=== PATIENT | female | born 1960 ===

== ENCOUNTER → 2023-09-06 11:10 | Outpatient (REF) | payer BC, SELFPAY | LOC: RAD 11:10 | PROVIDERS: ATTENDING PHYSICIAN Internal Medicine | DX: R60.0 Localized edema (principal) | CPT/HCPCS: 93971 ==

== ENCOUNTER → 2023-09-21 10:09 | Outpatient (REF) | payer BC, SELFPAY | LOC: DHVS 10:09 | PROVIDERS: ATTENDING PHYSICIAN Registered Nurse; FAMILY PHYSICIAN Internal Medicine | DX: I87.2 Venous insufficiency (chronic) (peripheral) (principal) | CPT/HCPCS: 93970 ==

== ENCOUNTER → 2023-11-01 09:19 | Outpatient (REF) | payer BC, SELFPAY | LOC: HWEVLT 09:19 | PROVIDERS: ATTENDING PHYSICIAN Radiology Vascular & Interventional Radiology | DX: I83.892 Varicose veins of left lower extremity with other complications (principal) | CPT/HCPCS: 36478; C1769 ==

== ENCOUNTER → 2023-11-21 11:01 | Outpatient (REF) | payer BC, SELFPAY | LOC: HWEVLT 11:01 | PROVIDERS: ATTENDING PHYSICIAN Radiology Diagnostic Radiology | DX: I83.892 Varicose veins of left lower extremity with other complications (principal) | CPT/HCPCS: 93971 ==

== ENCOUNTER → 2024-01-11 15:06 | Outpatient (REF) | payer BC, SELFPAY | LOC: HWEVLT 15:06 | PROVIDERS: ATTENDING PHYSICIAN Radiology Vascular & Interventional Radiology | DX: I83.892 Varicose veins of left lower extremity with other complications (principal) | CPT/HCPCS: 93971 ==

== ENCOUNTER → 2024-04-16 08:46 | Outpatient (REF) | payer BC, SELFPAY ==
--- NOTE | 2024-04-16 10:10 | W.PN.UPDATE ---
Update Note
Progress Note Update
Ruchi is a 64 yo female who came in today for follow up. She had left greater saphenous vein ablation on November 01, 2023. Her two-week follow-up showed no evidence of DVT. She was seen on 01/11/24 for similar symptoms. She called the office
yesterday stating that she still has swelling and the wounds are still draining clear fluid and occasional blood. She has been wearing her stocking daily. She has tneder superficial varicosities a well. She denies any chest pain, palpitations or
shortness of breath. She comes here now for evaluation
PMHx/PSxHx: Venous insufficiency, hemachromatosis, hypertension, hypothyroidism.
Social Hx: Patient is and lives with her . She denies tobacco use.
Family Hx: Patient has a family history of venous insufficiency
The patient's medications were reconciled with the medical records.
Current Medications: Nebivolov, losartan, levothyroxine, atorvastatin, pantoprazole, lorazepam, vitamin D3
Allergies: NKDA
Physical examination: There is left leg swelling and tenderness along the mid left calf. There are palpable tender superficial varicosities. +2 pitting edema. Palpable dorsalis pedis and posterior tibial pedal pulses. There is chronic
circumferential cellulitis around the distal third of the lower leg. There is lipodermatosclerosis and chronic venous stasis skin changes.
Ultrasound examination from 01/11/2024 demonstrates there is superficial thrombophlebitis in the superficial varicosities in the lower calf branching off of the greater saphenous vein which is occluded consistent with successful closure. There is no
evidence of deep venous thrombosis. I personally reviewed and interpreted these images
Assessment/Plan:
This is a 64-year-old female with history of venous insufficiency. She had a left greater saphenous vein ablation on November 01, 2023. She had a follow-up ultrasound on November 20 which was consistent with successful endovenous laser ablation of
the left greater saphenous vein. She still has palpable swollen tender varicosities in the left medial calf and some lower extremity swelling. Ultrasound is consistent with superficial thrombophlebitis. Since the procedure was in October and she
still has some nonhealing wounds we referred her to the wound care center. She was able to obtain an appointment this coming at the wound center
I spent over 15 minute in counseling and coordination of care with the patient, reviewing the history and physical examination, ultrasound exam as well as discussing our findings and treatment plan.
== END ==
LOC: RADI 08:46
PROVIDERS: ATTENDING PHYSICIAN Radiology Vascular & Interventional Radiology; FAMILY PHYSICIAN Internal Medicine
DX: I87.2 Venous insufficiency (chronic) (peripheral) (principal); R22.42 Localized swelling, mass and lump, left lower limb; I80.02 Phlebitis and thrombophlebitis of superficial vessels of left lower extremity

== ENCOUNTER → 2024-04-18 07:59 | Outpatient (REF) | payer BC, SELFPAY | LOC: WOUND 07:59 | PROVIDERS: ATTENDING PHYSICIAN Surgery; FAMILY PHYSICIAN Internal Medicine | DX: I87.312 Chronic venous hypertension (idiopathic) with ulcer of left lower extremity (principal); L97.221 Non-pressure chronic ulcer of left calf limited to breakdown of skin; I87.2 Venous insufficiency (chronic) (peripheral) | CPT/HCPCS: 99203 ==

== ENCOUNTER → 2024-04-23 10:24 | Outpatient (REF) | payer BC, SELFPAY | LOC: WOUND 10:24 | PROVIDERS: ATTENDING PHYSICIAN Surgery; FAMILY PHYSICIAN Internal Medicine | DX: I87.312 Chronic venous hypertension (idiopathic) with ulcer of left lower extremity (principal); L97.221 Non-pressure chronic ulcer of left calf limited to breakdown of skin; I87.2 Venous insufficiency (chronic) (peripheral) | CPT/HCPCS: 99212 ==

== ENCOUNTER → 2024-04-24 14:43 | Outpatient (REF) | payer BC, SELFPAY | LOC: HWEVLT 14:43 | PROVIDERS: ATTENDING PHYSICIAN Radiology Diagnostic Radiology | DX: I83.892 Varicose veins of left lower extremity with other complications (principal) | CPT/HCPCS: 93971 ==